=== PATIENT | male | born 1970 | race Caucasian/White ===

== ENCOUNTER 2019-07-28 15:00 | Inpatient (IN) | payer OTHER ==
[~2019-07-28] VITALS: Ht 188 cm; Wt 88.9 kg
--- NOTE | 2019-07-28 15:10 | NUR ---
GLENNA RA 77 From Home "NOT Feeling well/Nausea/reading high on BS monitor. Patient altered, a/ox1-2, tachypnea, responsive to stimuli, changed into gown, attached to the cardiac nurse specialist.
[2019-07-28] MEDS ORDERED: IV NS 0.9% 1,000 ML BAG IV ONE ×3 (15:30→18:30)
--- NOTE | 2019-07-28 15:38 | NUR ---
: DAVINA CANTOR [phone]
[2019-07-28 15:52] LABS: BASOPHILS # (AUTO) 0.2 /CMM (0.0-0.2); BASOPHILS % (AUTO) 0.5 % (0.0-2.0); HEMATOCRIT 53 % (39-51); HEMOGLOBIN 15.7 g/dL (13.5-17.5); LYMPHOCYTES # (AUTO) 1.1 /CMM (0.8-4.8); LYMPHOCYTES % (AUTO) 3.8 % (20.0-44.0); MEAN CORPUSCULAR HGB CONC 30 g/dl (31.0-36.0); MEAN CORPUSCULAR VOLUME 106 fL (80-96); MONOCYTES # (AUTO) 3.2 /CMM (0.1-1.30); MONOCYTES % (AUTO) 10.7 % (2.0-12.0); PLATELET COUNT (AUTO) 226 /CMM (150-450); RED BLOOD CELL COUNT(AUTO) 4.99 MIL/uL (4.5-6.0); WHITE BLOOD COUNT (AUTO) 29.4 K/uL (4.3-11.0)
--- NOTE | 2019-07-28 17:23 | NUR ---
BLOOD DRAWN AND SENT TO LAB
[2019-07-28 17:39] LABS: APPEARANCE,URINE Clear (CLEAR); BILIRUBIN,URINE SMALL (NEGATIVE); BLOOD, URINE Trace-lysed Ery/uL (NEGATIVE); COLOR,URINE Yellow (YELLOW); KETONES,URINE >=160 (NEGATIVE); LEUKOCYTE ESTERASE ,URINE Negative (NEGATIVE); NITRITE, URINE Negative (NEGATIVE); PROTEIN,URINE 30 mg/dl (NEGATIVE); UGLUCOSE >=1000 mg/dL (NEGATIVE)
--- NOTE | 2019-07-28 17:50 | NUR ---
PT IS GOING TO ICU 263.
[2019-07-28 17:54] LABS: BACTERIA,URINE Few /HPF (None Seen); SQUAMOUS EPITHELIAL CELL,UR Few /HPF (None Seen); WBC,URINE 0-2 /HPF (0-3)
[2019-07-28 17:59] LABS: ALANINE AMINOTRANSFERASE 128 U/L (12-78); ALBUMIN 2.1 g/dL (3.4-5.0); ALKALINE PHOSPHATASE 113 U/L (46-116); ASPARTATE AMINOTRANSFERASE 15 U/L (15-37); BILIRUBIN,TOTAL 0.3 mg/dL (0.2-1.0); CHLORIDE 111 mmol/L (98-107); CREATININE 1.4 mg/dL (0.6-1.3); POTASSIUM 3.1 mmol/L (3.5-5.1); SODIUM SERUM 142 mmol/L (136-145); TOTAL PROTEIN, SERUM 4.3 g/dL (6.4-8.2); UREA NITROGEN, BLOOD 17 mg/dL (7-18)
[2019-07-28 18:04] LABS: GLUCOSE 515 mg/dL (74-106)
[2019-07-28] MEDS ORDERED: IV PREMIX NS + 40 MEQ KCL 1,000 L IV PRN (18:04)
[2019-07-28 18:08] LABS: CARBON DIOXIDE 7 mmol/L (21-32)
[2019-07-28 18:09] LABS: CALCIUM, SERUM 4.8 mg/dL (8.5-10.1)
[2019-07-28] MEDS ORDERED: LEVOFLOXACIN 750 MG /D5W 150ML 150 ML IV ONE (18:11)
[2019-07-28 18:23] LABS: D-DIMER 0.81 mg/L(FEU (0.17-0.50)
[2019-07-28 18:26] LABS: BAND % (MANUAL) 11 % (0.0-5.0); LYMPHOCYTES % (MANUAL) 4 % (16-48); MONOCYTES % (MANUAL) 9 % (0-11.0); NEUTROPHILS % (MANUAL) 76 (42-76)
[2019-07-28] MEDS ORDERED: INSULIN REGULAR, HUMAN 100 UNIT in IV NS 0.9% 99 ML IV PRN ×4 (18:30→20:30)
[2019-07-28] MEDS ORDERED: LEVOFLOXACIN 750 MG /D5W 150ML PIGGYBACK IV ONE (18:30)
--- NOTE | 2019-07-28 19:03 | NUR ---
REPORT GIVEN TO EDIN GUZMÁN FOR NELDA.
[2019-07-28 19:47] LABS: CREATININE 1.6 mg/dL (0.6-1.3); MAGNESIUM 1.5 mg/dL (1.8-2.4); PHOSPHORUS 2.3 mg/dL (2.5-4.9)
[2019-07-28 19:49] LABS: CALCIUM, SERUM 5.9 mg/dL (8.5-10.1)
--- NOTE | 2019-07-28 20:25 | NUR ---
RN ADMITTING NOTES RECEIVED PT FROM ER VIA [facility] @ SPO2 98% NO SIGN AND SYMPTOMS OF DISTRESS WITH CLEAR BREATH SOUND ON ENTIRE LUNGS PT IS A LITTLE LETHARGIC A/O X3 BUT VERY WEAK COMPLAINING OF THROAT PAIN RIGHT NOW, SAFELY TRANSFER FROM [facility] TO BED V/S CHECKED WITHIN NORMAL RANGE, HEAD TO TOE ASSESSMENT DONE, HOOK TO TELE MONITOR WITH READING SINUS TACHY 110'S, WITH ONGOING NS 1L +40 MEQ KCL RUNNING @ 250ML/HR ON LEFT WRIST IV #20 INFUSING WELL,BLOOD SUGAR THIS TIME IS 407 STARTED INSULIN DRIPS ORDERED RATE PER PROTOCOL, PUT ON DROPLET ISOLATION TO R/O COVID, 19, SAFETY MEASURE INITIATED BED ON LOWEST POSITION AND LOCKED SIDE RAILS UP X2 CALL LIGHT WITHIN REACH WILL CONT TO MONITOR THE PT
[2019-07-28] MEDS ORDERED: Potassium Chloride 20 MEQ in IV NS 0.9% 1,000 ML IV PRN (20:30)
[2019-07-28] MEDS ORDERED: SODIUM BICARBONATE SYR 50 MEQ/50 ML DISP.SYRIN IV ONE (20:30)
[2019-07-28] MEDS: POTASSIUM CL. PREMIX PERIPHER. 50 ML IV SCH ×2 (20:48→22:24)
[2019-07-28] MEDS: Magnesium 1GM/D5W 100ML PREMIX 100 ML IV SCH ×2 (20:49→22:24)
[2019-07-28] MEDS: BLOOD SUGAR DIAGNOSTIC 1 EACH STRIP IN SCH ×3 (20:52→23:12)
[2019-07-28 21:00] VITALS: BP 126/77
[2019-07-28] MEDS ORDERED: MORPHINE SULFATE INJ 2 MG/ML DISP.SYRIN IV PRN (21:00)
[2019-07-28] MEDS ORDERED: MAG HYDROX/AL HYDROX/SIMETH 30 ML UDC PO PRN (21:00)
[2019-07-28] MEDS ORDERED: ONDANSETRON HCL/PF 4 MG/2 ML VIAL IVP PRN (21:00)
[2019-07-28] MEDS ORDERED: HYDROCODONE/APAP 5/325MG TABLET PO PRN (21:00)
[2019-07-28] MEDS ORDERED: MAGNESIUM HYDROXIDE 30 ML UDC PO PRN (21:00)
[2019-07-28 21:01] LABS: C-REACTIVE PROTEIN 0.8 mg/dL (0.0-0.9); CREATINE KINASE, TOTAL 72 U/L (39-308); FERRITIN 268 ng/mL (8-388)
[2019-07-28 21:30] VITALS: BP 133/77
[2019-07-28 21:54] LABS: ABG BASE EXCESS -9.8 mmol/L; ABG OXYGEN SATURATION 96.5 % (92.0-98.5); ABG PCO2 25.6 mmHg (35.0-45.0); ABG PH 7.354 (7.350-7.450); AaDO2 37.1 mmHg; COHb 0.1 % (0.5-1.5); MetHb 0.1 % (0.0-1.5); O2Hb 96.3 % (94.0-97.0); SITE, ABG Right Radial; VENT MODE, BG ROOM AIR
--- NOTE | 2019-07-28 21:56 | NUR ---
PT ON ROOM AIR. ABG DONE. NOTIFIED RN ÁNGEL WITH THE RESULT.
[2019-07-28 22:00] VITALS: BP 147/78
[2019-07-28 22:30] VITALS: BP 137/73
[2019-07-28 22:49] LABS: CALCIUM, SERUM 8.6 mg/dL (8.5-10.1); CREATININE 1.9 mg/dL (0.6-1.3); MAGNESIUM 2.4 mg/dL (1.8-2.4); PHOSPHORUS 2.6 mg/dL (2.5-4.9); POTASSIUM 5.6 mmol/L (3.5-5.1)
[2019-07-28 23:00] VITALS: BP 136/72
[2019-07-28 23:30] VITALS: BP 142/74
[2019-07-28] MEDS: ACETAMINOPHEN 325 MG TABLET PO PRN (23:42)
[2019-07-28 23:56] LABS: CALCIUM, SERUM 8.3 mg/dL (8.5-10.1); CREATININE 1.7 mg/dL (0.6-1.3); MAGNESIUM 2.7 mg/dL (1.8-2.4); PHOSPHORUS 1.4 mg/dL (2.5-4.9); POTASSIUM 5.2 mmol/L (3.5-5.1)
[2019-07-29] VITALS (22 sets, daily range): BP systolic 117–144; BP diastolic 66–89
[2019-07-29] MEDS ORDERED: IV NS 0.9% 1,000 ML IV PRN
[2019-07-29] MEDS: BLOOD SUGAR DIAGNOSTIC 1 EACH STRIP IN SCH ×9 (00:05→21:15)
[2019-07-29] MEDS ORDERED: Sodium Phosphate 15 MMOL in IV NS 0.9% 95 ML IV SCH (02:30)
--- NOTE | 2019-07-29 02:30 | NUR ---
RADIOLOGIC TECHNOLOGIST MAMMOGRAM NOTES RECEIVED ORDER FOR SODIUM PHOSPHATE IV BUT CURRENTLY AVAILABLE FLOWER PICKER PURNIMA SLATER MECHANICAL PROCESS ENGINEER MADE AWARE WITH ORDER TO CHANGE IT TO NEUTRA PHOS 500MG TABLET PO X1 NOTED AND CARRIED OUT
[2019-07-29] MEDS ORDERED: K PHOS NEUTRAL 250 MG TABLET PO ONE ×2 (03:00→05:30)
[2019-07-29 04:28] LABS: BASOPHILS % (AUTO) 0.1 % (0.0-2.0); HEMATOCRIT 38 % (39-51); LYMPHOCYTES # (AUTO) 0.5 /CMM (0.8-4.8); LYMPHOCYTES % (AUTO) 3.8 % (20.0-44.0); MEAN CORPUSCULAR HGB CONC 35 g/dl (31.0-36.0); MEAN CORPUSCULAR VOLUME 91 fL (80-96); MONOCYTES % (AUTO) 7.9 % (2.0-12.0); NEUTROPHILS # (AUTO) 11.2 /CMM (1.8-8.9); NEUTROPHILS % (AUTO) 88.2 % (43.0-81.0); PLATELET COUNT (AUTO) 197 /CMM (150-450); RED BLOOD CELL COUNT(AUTO) 4.14 MIL/uL (4.5-6.0); WHITE BLOOD COUNT (AUTO) 12.6 K/uL (4.3-11.0)
[2019-07-29 04:50] LABS: THYROID STIMULATING HORMONE 0.652 uIU/mL (0.358-3.74)
[2019-07-29 04:58] LABS: ALBUMIN 3.3 g/dL (3.4-5.0); BILIRUBIN,TOTAL 0.3 mg/dL (0.2-1.0); CALCIUM, SERUM 8.2 mg/dL (8.5-10.1); CREATININE 1.4 mg/dL (0.6-1.3); MAGNESIUM 2.4 mg/dL (1.8-2.4); PHOSPHORUS 2.2 mg/dL (2.5-4.9); POTASSIUM 4.1 mmol/L (3.5-5.1); TOTAL PROTEIN, SERUM 6.5 g/dL (6.4-8.2)
[2019-07-29] MEDS ORDERED: DEXTROSE 50%-WATER 50 ML DISP.SYRIN IV PRN (05:30)
--- NOTE | 2019-07-29 05:30 | NUR ---
RN AMBULATORY NOTES RELAYED TO PAINTER SET PURNIMA SLATER BUTADIENE CONVERTER OPERATOR ABOUT THE LATEST ANION GAP 13 AND BLOOD SUGAR 140 WITH ORDER TO DC THE INSULIN DRIP AND DO INSULIN AGGRESSIVE SLIDING SCALE Q4H AND CHANGE IVF TO D5 1/2 NS 100ML/ HR AND GIVE NEUTRA PHOS 500MG X1 PO AND PUT PT ON CCHO DIABETIC DIET NOTED AND CARRIED OUT
[2019-07-29] MEDS: IV D5/0.45 NACL 1,000 ML IV PRN ×2 (05:32→18:53)
--- NOTE | 2019-07-29 07:03 | NUR ---
RN CLOSING NOTES PT ON BED ASLEEP EASY TO AWAKE, NO SIGN AND SYMPTOMS OF RESPIRATORY DISTRESS, SPO2 >94 VIA RA, NO SIGNIFICANT CHANGES NOTED, OFF TO INSULIN DRIP @ 0530 DUE TO ANION 13 AND BLOOD SUGAR OF 140, LATEST TEMP IS 99.2 VIA ORAL STILL ON DROPLET ISOLATION FOR R/O COVID 19 PENDING RESULTS ALL NEEDS ATTENDED ON TELE MONITOR WITH READING SINUS TACHY 100'S SAFETY MEASURE MAINTAINED CALL LIGHT WITHIN REACH WILL ENDORSE TO AM SHIFT NURSE
--- NOTE | 2019-07-29 07:30 | NUR ---
RN OPENING NOTE: RECEIVED PATIENT RESTING IN BED THIS MORNING. PATIENT IS ALERT AND ORIENTED X3, RESPONDS APPROPRIATELY. PATIENT IS SATING WELL ON RA, NO SIGS OF RESPIRATORY DISTRESS NOTED. NO SIGNS OF ACUTE DISTRESS NOTED. TELE MONITOR ST IN THE 120S. SKIN INTACT. #20 R WRIST/ L WRIST, C/D/I, FLUSHES WELL, NO SIGNS OF COMPLICATIONS NOTED. ISOLATION PRECAUTIONS IMPLICATED FOR POSSIBLE COVID 19. SAFETY MEASURES IMPLEMENTED, BED IN LOWEST POSITION, LOCKED, SIDE RAILS UP X2, CALL LIGHT WITHIN REACH. WILL CONTINUE TO MONITOR PATIENT FOR CHANGES.
[2019-07-29] MEDS: PANTOPRAZOLE 40 MG VIAL IV SCH (08:18)
[2019-07-29] MEDS ORDERED: IV PREMIX NS + 40 MEQ KCL 1 L IV ONE (08:30)
[2019-07-29] MEDS: INSULIN REGULAR, HUMAN 100 UNIT/ML 3 ML VIAL SQ PRN ×4 (09:21→21:20)
[2019-07-29 09:41] LABS: CALCIUM, SERUM 8.1 mg/dL (8.5-10.1); CREATININE 1.4 mg/dL (0.6-1.3); POTASSIUM 4.3 mmol/L (3.5-5.1)
[2019-07-29 15:58] LABS: CALCIUM, SERUM 8.5 mg/dL (8.5-10.1); CREATININE 1.6 mg/dL (0.6-1.3); POTASSIUM 3.6 mmol/L (3.5-5.1)
[2019-07-29] MEDS ORDERED: LEVOFLOXACIN 750 MG /D5W 150ML 750 MG in PREMIX 1 EA IV SCH (18:00)
--- NOTE | 2019-07-29 19:24 | NUR ---
RN CLOSING NOTE: PATIENT REMAINS IN ROOM. NO SIGNS OF RESPIRATORY/ACUTE DISTRESS NOTED. SAFETY MEASURES IMPLEMENTED, BED IN LOWEST POSITION, LOCKED, SIDE RAILS UP, CALL LIGHT WITHIN REACH. ENDORSED TO ONCOMING SHIFT RN FOR CONTINUITY OF CARE.
[2019-07-29 20:49] LABS: CALCIUM, SERUM 8.5 mg/dL (8.5-10.1); CREATININE 1.2 mg/dL (0.6-1.3); POTASSIUM 3.8 mmol/L (3.5-5.1)
[2019-07-29] MEDS: ACETAMINOPHEN 325 MG TABLET PO PRN (21:21)
[2019-07-30] VITALS: BP 134/72
[2019-07-30] MEDS: BLOOD SUGAR DIAGNOSTIC 1 EACH STRIP IN SCH ×3 (01:04→09:23)
[2019-07-30 01:10] LABS: CALCIUM, SERUM 8.3 mg/dL (8.5-10.1); CREATININE 0.9 mg/dL (0.6-1.3); POTASSIUM 3.4 mmol/L (3.5-5.1)
[2019-07-30] MEDS: INSULIN REGULAR, HUMAN 100 UNIT/ML 3 ML VIAL SQ PRN ×3 (01:12→09:25)
[2019-07-30 04:00] VITALS: BP 152/99
[2019-07-30 04:57] LABS: BASOPHILS % (AUTO) 0.1 % (0.0-2.0); EOSINOPHILS % (AUTO) 0.1 % (0.0-6.0); HEMATOCRIT 35 % (39-51); HEMOGLOBIN 12.3 g/dL (13.5-17.5); LYMPHOCYTES # (AUTO) 0.9 /CMM (0.8-4.8); MEAN CORPUSCULAR HGB CONC 35 g/dl (31.0-36.0); MEAN CORPUSCULAR VOLUME 91 fL (80-96); MONOCYTES # (AUTO) 0.7 /CMM (0.1-1.30); MONOCYTES % (AUTO) 8.4 % (2.0-12.0); NEUTROPHILS # (AUTO) 6.3 /CMM (1.8-8.9); NEUTROPHILS % (AUTO) 80.4 % (43.0-81.0); PLATELET COUNT (AUTO) 126 /CMM (150-450); RED BLOOD CELL COUNT(AUTO) 3.87 MIL/uL (4.5-6.0); WHITE BLOOD COUNT (AUTO) 7.9 K/uL (4.3-11.0)
[2019-07-30 05:16] LABS: CALCIUM, SERUM 8.4 mg/dL (8.5-10.1); CREATININE 0.9 mg/dL (0.6-1.3); PHOSPHORUS 2.9 mg/dL (2.5-4.9)
--- NOTE | 2019-07-30 07:30 | NUR ---
Tele/RN note Received patient AO x 4, able to responds all stimuli. Respiratory even and unlabored in room air, no sob or distress observed. Denies pain or any discomfort. Skin is warm to touch, kept clean/dry and intact IV line. Keep low position of the bed with locked wheel and elevated head of the bed for secure airway. Call light within reach, will continue to monitor.
[2019-07-30 08:00] VITALS: BP 156/95
[2019-07-30] MEDS: PANTOPRAZOLE 40 MG VIAL IV SCH (09:21)
[2019-07-30] MEDS ORDERED: INSU100V11 SQ (10:49)
[2019-07-30] MEDS ORDERED: INSU100V7 SQ (10:49)
[2019-07-30 11:03] LABS: CALCIUM, SERUM 8.5 mg/dL (8.5-10.1); CREATININE 0.9 mg/dL (0.6-1.3); POTASSIUM 3.6 mmol/L (3.5-5.1)
--- NOTE | 2019-07-30 11:40 | NUR ---
Given discharge instruction include corn picker prescribed meds, diet and actively regimen. Pt verbally understanding. Denies pain pr any discomfort, accompanied by staff to private car in stable condition.
[2019-07-30 12:00] VITALS: BP 141/85
== END 2019-07-30 12:10 | disposition home or self-care (01) | DRG 637 ==
LOC: ER 15:01 → ICU 19:09 → TELE1 07-29 13:56
PROVIDERS: ADMIT Nurse Practitioner Acute Care; ATTEND Family Medicine
DX: E11.10 Type 2 diabetes mellitus with ketoacidosis without coma (principal); G93.41 Metabolic encephalopathy; N17.0 Acute kidney failure with tubular necrosis; R65.11 Systemic inflammatory response syndrome (SIRS) of non-infectious origin with acute organ dysfunction; E44.0 Moderate protein-calorie malnutrition; Z88.2 Allergy status to sulfonamides; Z68.24 Body mass index [BMI] 24.0-24.9, adult; E87.6 Hypokalemia; E88.09 Other disorders of plasma-protein metabolism, not elsewhere classified; D72.829 Elevated white blood cell count, unspecified; E86.9 Volume depletion, unspecified; E83.39 Other disorders of phosphorus metabolism; E83.51 Hypocalcemia; E78.5 Hyperlipidemia, unspecified; E11.22 Type 2 diabetes mellitus with diabetic chronic kidney disease; N18.9 Chronic kidney disease, unspecified; R74.0 Nonspecific elevation of levels of transaminase and lactic acid dehydrogenase [LDH]; R11.2 Nausea with vomiting, unspecified; Z88.0 Allergy status to penicillin
CPT/HCPCS: 36415; 36600; 71045-TC; 80048-TC; 80053-TC; 80061-TC; 80076-TC; 81000-TC; 82550-TC; 82728-TC; 82803-TC; 82962-TC; 83605-TC; 83615-TC; 83735-TC; 84100-TC; 84443-TC; 84484-TC; 85025-TC; 85378-TC; 85385-TC; 85730-TC; 86140-TC; 87040-TC; 87081-TC; A4216; A9563; C9113; G0378; J1815; J1956; J3475; J3480; J3490; J7030